=== PATIENT | female | born 1980 | race Caucasian/White ===

== ENCOUNTER → 2024-02-24 11:38 | Outpatient (REF) | payer BC, SELFPAY | LOC: HWWDC 11:38 | PROVIDERS: ATTENDING PHYSICIAN Advanced Practice Midwife; FAMILY PHYSICIAN Family Medicine | DX: Z12.31 Encounter for screening mammogram for malignant neoplasm of breast (principal) | CPT/HCPCS: 77063; 77067 ==

== ENCOUNTER → 2025-03-27 10:40 | Outpatient (REF) | payer BC, SELFPAY | LOC: HWWDC 10:40 | PROVIDERS: ATTENDING PHYSICIAN Student in an Organized Health Care Education/Training Program; FAMILY PHYSICIAN Family Medicine | DX: Z12.31 Encounter for screening mammogram for malignant neoplasm of breast (principal) | CPT/HCPCS: 77063; 77067 ==